=== PATIENT | female | born 1965 | race Caucasian/White ===

== ENCOUNTER 2018-01-17 13:26 | Outpatient (CLI) | payer OTHER | END 2018-01-17 13:27 | disposition home or self-care (01) | LOC: DTY/OP 13:26 | PROVIDERS: ATTEND Surgery | DX: E66.01 Morbid (severe) obesity due to excess calories (principal); E78.5 Hyperlipidemia, unspecified | CPT/HCPCS: 97802 ==

== ENCOUNTER 2018-02-13 09:12 | Outpatient (CLI) | payer OTHER | END 2018-02-13 09:13 | disposition home or self-care (01) | LOC: DTY/OP 09:12 | PROVIDERS: ATTEND Surgery | DX: E66.01 Morbid (severe) obesity due to excess calories (principal); E78.5 Hyperlipidemia, unspecified | CPT/HCPCS: 97802 ==

== ENCOUNTER 2018-06-27 04:38 | Outpatient (CLI) | payer OTHER ==
[2018-06-27 11:07] LABS: Mean Corpuscular HGB CONC 32.4 g/dL (32.0-36.0); Mean Corpuscular Volume 92.9 fL (78.0-98.0); Mean Platelet Volume 8.7 fL (7.4-10.4); Platelet Count 253 thou/uL (130-400); RBC Distribution Width 12.2 % (11.5-14.5); Red Blood Cell (RBC) Count 4.65 mill/uL (4.20-5.40); White Blood Cell (WBC) Count 7.4 thou/uL (4.8-10.8)
--- NOTE | 2018-06-27 11:19 | RAD ---
CHEST TWO VIEWS: History: Pre-operative exam. Comparison: None. FINDINGS: Normal cardiac silhouette. The pulmonary vessels and hilum are normal. Costophrenic angles are clear. No mass. No consolidation. No pneumothorax or osseous abnormalities. IMPRESSION: No acute cardiopulmonary process. POS: [facility]
[2018-06-27 11:28] LABS: ALT (SGPT) 15 U/L (8-55); AST (SGOT) 19 U/L (5-34); Albumin 4.2 g/dL (3.5-5.0); Alkaline Phosphatase 74 U/L (40-150); Anion Gap 13 mmol/L (10-20); BUN (Urea Nitrogen) 20 mg/dL (9.8-20.1); Bilirubin, Direct 0.2 mg/dL (0.1-0.3); Bilirubin, Total 0.4 mg/dL (0.2-1.2); Calc. Creatinine Clearance 0 mL/min (70-130); Calcium 9.4 mg/dL (7.8-10.44); Carbon Dioxide 22 mmol/L (22-29); Chloride 105 mmol/L (98-107); Estimated GFR-MDRD 86; Globulin 3.1 g/dL (2.4-3.5); Glucose 91 mg/dL (70-105); Potassium 3.9 mmol/L (3.5-5.1); Protein, Total 7.3 g/dL (6.0-8.3); Sodium 136 mmol/L (136-145)
[2018-06-27 11:38] LABS: Hemoglobin A1c 5.3 % (4.0-6.0)
--- NOTE | 2018-06-28 09:01 | EKG ---
Test Reason : Blood Pressure : / mmHG Vent. Rate : 065 BPM Atrial Rate : 065 BPM P-R Int : 126 ms QRS Dur : 080 ms QT Int : 420 ms P-R-T Axes : 039 042 035 degrees QTc Int : 436 ms Normal sinus rhythm Low voltage QRS Borderline ECG No previous ECGs available Confirmed by DR. Cuong PEREZ ([id number]) on 06/28/2018 9:01:36 AM Referred By: RIK Confirmed By:DR. Cuong PEREZ
== END 2018-06-27 04:39 | disposition home or self-care (01) ==
LOC: LABBT 04:38
PROVIDERS: ATTEND Surgery
DX: Z01.818 Encounter for other preprocedural examination (principal); E66.01 Morbid (severe) obesity due to excess calories
CPT/HCPCS: 71046; 80053; 80076; 83036; 85027; 93005; 93010

== ENCOUNTER 2018-06-27 10:00 | Inpatient (IN) | payer OTHER ==
[2018-06-27 10:19] VITALS: BMI 39.5
[2018-07-10] MEDS ORDERED: Fentanyl 100 MCG/2 ML VIAL ONE ×4 (06:25→09:35)
[2018-07-10] MEDS ORDERED: Heparin 5,000 UNITS/ML VIAL ONE (06:36)
[2018-07-10] MEDS ORDERED: Bupivacaine HCl 0.5%/Epinephrine 1:200,000/PF 30 ml Vial ONE (06:48)
[2018-07-10] MEDS ORDERED: hydrALAZINE 20 MG/ML VIAL SLOW IVP PRN (08:52)
[2018-07-10] MEDS ORDERED: Promethazine HCl 25 MG/ML VIAL IM PRN ×3 (08:52→09:14)
[2018-07-10] MEDS ORDERED: Dextrose 5% in Water 1,000 ML IV PRN (08:52)
[2018-07-10] MEDS ORDERED: Hydrocodone-Acetamin 15 ML UDCUP PO PRN (08:52)
[2018-07-10] MEDS ORDERED: diphenhydrAMINE 50 MG/ML VIAL IVP PRN ×2 (08:52→09:14)
[2018-07-10] MEDS ORDERED: Dextrose 50% Abboject 50 ML SYRINGE SLOW IVP PRN (08:52)
[2018-07-10] MEDS ORDERED: Ondansetron PF 4 MG/2 ML Vial IVP PRN ×2 (08:52→09:14)
[2018-07-10] MEDS ORDERED: Enoxaparin Sodium 40 MG/0.4 ML SYRINGE SC SCH (09:00)
[2018-07-10] MEDS ORDERED: CEFAZOLIN/Water 2 GM/20 ML SYRINGE SLOW IVP SCH (09:00)
[2018-07-10] MEDS ORDERED: Pantoprazole 40 MG VIAL IVP SCH (09:00)
[2018-07-10] MEDS ORDERED: Naloxone HCl 0.4 mg/ml Vial IV PRN (09:14)
[2018-07-10] MEDS ORDERED: fentaNYL Citrate/PF 2,000 MCG in Sodium Chloride 0.9% 60 ML IV PRN (09:14)
[2018-07-10] MEDS ORDERED: Promethazine HCl 25 MG/ML VIAL SLOW IVP PRN (09:14)
[2018-07-10] MEDS ORDERED: diphenhydrAMINE 25 MG CAP PO PRN (09:14)
[2018-07-10] MEDS ORDERED: Ketorolac Tromethamine 30 MG/ML VIAL IVP PRN (09:14)
[2018-07-10] MEDS ORDERED: Ondansetron HCl/PF 4 MG/2 ML Vial IVP PRN (09:14)
[2018-07-10] MEDS ORDERED: Zolpidem Tartrate 5 MG TAB PO PRN (09:14)
[2018-07-10] MEDS ORDERED: diphenhydrAMINE 50 MG/ML VIAL IM PRN (09:14)
[2018-07-10] MEDS ORDERED: Communication Order-Pharmacy FS SCH (09:15)
[2018-07-10] MEDS ORDERED: Sodium Chloride 0.9% (PF) 10 ML VIAL FS PRN (09:31)
[2018-07-10] MEDS ORDERED: D5 1/2 NS w/20 mEq KCL 1,000 ML ONE (09:42)
--- NOTE | 2018-07-10 09:53 | OP ---
DATE OF PROCEDURE: 07/10/2018 PREOPERATIVE DIAGNOSIS: Morbid obesity. PROCEDURES PERFORMED: Laparoscopic sleeve gastrectomy with esophagogastroscopy. INDICATIONS: A 52-year-old female, morbidly obese, who has attempted multiple weight loss programs without success. FINDINGS: A 38-Indian bougie used. DESCRIPTION OF PROCEDURE: After informed consent was obtained, the patient was taken to the operating room and given general endotracheal anesthesia. She was placed in supine position. Her abdomen was prepped and draped in usual fashion. Local anesthesia was infiltrated subcutaneously and deep. A 12 mm incision was performed approximately 8 inches above the xiphoid slightly to the left. Veress needle inserted. Drop test performed. Pneumoperitoneum was created to a volume of 2 L of carbon dioxide. Utilizing a bladeless 12 mm trocar and 0-degree laparoscope, direct visual entry into the abdominal cavity was performed. Pneumoperitoneum was created to a pressure of 15 mmHg. The patient was placed in steep reverse Trendelenburg position and a Peng liver retractor was inserted. Left lobe of liver retracted superiorly. The pylorus was identified. A 12 mm port placed on the right beneath it and two 12s placed left subcostal. The omentum was taken off the greater curvature 5 cm from the pylorus utilizing the LigaSure. Short gastrics divided with LigaSure and left crura defined with LigaSure. A 38-Indian bougie inserted directed into the antrum. The linear 60 mm green load stapler used to divide the antrum to the bougie, gold load along the bougie, and a series of blues through the angle of His. Intraoperative endoscopy was performed. The video endoscope was inserted under direct vision and advanced into the sleeve. The staple line was inspected. There was no bleeding. Staple line then tested by inflating the new stomach with pressurized air and water. There was no air leak. Stomach decompressed. Scope removed. The remnants of the stomach removed from the abdomen through the left lateral port site. The fascia was closed with 0 Vicryl suture and the GraNee needle. Trocars and retractors removed. Hemostasis assured. Skin closed with interrupted 4-0 Rapide. Dermabond applied. The patient tolerated the procedure well, transferred to Recovery in good condition. Sponge and needle count verified correct x2. Job ID: [id number]
[2018-07-10] MEDS ORDERED: Ketorolac Tromethamine 30 MG/ML VIAL IVP SCH (12:00)
[2018-07-10] MEDS: CEFAZOLIN 2 GM in Premix Bag 1 BAG IVPB SCH (15:42)
[2018-07-10] MEDS ORDERED: PROPOFOL 200 MG/20 ML VIAL ONE (15:54)
[2018-07-10] MEDS ORDERED: Rocuronium Bromide 10 MG/ML (10ML VIAL) ONE (15:54)
[2018-07-10] MEDS ORDERED: Ondansetron PF 4 MG/2 ML Vial ONE (15:54)
[2018-07-10] MEDS ORDERED: Dexamethasone 20 MG/5 ML VIAL ONE (15:54)
[2018-07-10] MEDS ORDERED: Lidocaine 1% PF 5 ML VIAL ONE (15:54)
[2018-07-10] MEDS ORDERED: Glycopyrrolate 0.2 MG/ML 5 ML SYRINGE ONE (15:54)
[2018-07-10] MEDS ORDERED: ePHEDrine 50 MG/ML VIAL ONE (15:54)
[2018-07-10] MEDS: D5 1/2 NS w/20 mEq KCL 1,000 ML IV SCH ×2 (16:24→17:33)
[2018-07-11] MEDS: CEFAZOLIN 2 GM in Premix Bag 1 BAG IVPB SCH (00:25)
[2018-07-11] MEDS: D5 1/2 NS w/20 mEq KCL 1,000 ML IV SCH ×2 (00:25→09:23)
[2018-07-11 05:59] LABS: #Monocytes 0.6 thou/uL (0.11-0.59); #Neutrophils 8.8 thou/uL (1.40-6.50); %Eosinophils 0.2 % (0.0-10.0); %Lymphocytes 9.1 % (21.0-51.0); %Monocytes 6.1 % (0.0-10.0); %Neutrophils 84.6 % (42.0-75.0); Hemoglobin 13.2 g/dL (12.0-16.0); Mean Corpuscular HGB CONC 31.9 g/dL (32.0-36.0); Mean Corpuscular Hemoglobin 30.3 pg (27.0-31.0); Mean Platelet Volume 9.4 fL (7.4-10.4); Platelet Count 215 thou/uL (130-400); RBC Distribution Width 12.2 % (11.5-14.5); Red Blood Cell (RBC) Count 4.36 mill/uL (4.20-5.40); White Blood Cell (WBC) Count 10.4 thou/uL (4.8-10.8)
[2018-07-11 06:32] LABS: Anion Gap 12 mmol/L (10-20); BUN (Urea Nitrogen) 7 mg/dL (9.8-20.1); Calc. Creatinine Clearance 170 mL/min (70-130); Calcium 8.9 mg/dL (7.8-10.44); Carbon Dioxide 25 mmol/L (22-29); Chloride 104 mmol/L (98-107); Estimated GFR-MDRD Greater than 90; Glucose 153 mg/dL (70-105); Potassium 4.6 mmol/L (3.5-5.1); Sodium 136 mmol/L (136-145)
--- NOTE | 2018-07-11 08:40 | RAD ---
15 ML SINGLE CONTRAST UPPER GI: Date: 07/11/18 HISTORY: Postoperative day 1 gastric sleeve. EXPOSURE: 0.6 minutes. 4.4 mGy*cm^2. FINDINGS: Patient administered 15 mL of Gastrografin, which passes without difficulty from the esophagus into t he residual stomach. No leak or extravasation. IMPRESSION: No leak or extravasation. POS: [facility]
[2018-07-11] MEDS ORDERED: Enoxaparin Sodium 40 MG/0.4 ML SYRINGE SC SCH (09:00)
[2018-07-11] MEDS ORDERED: Pantoprazole 40 MG VIAL IVP SCH (09:00)
--- NOTE | 2018-07-11 10:44 | DIS ---
DATE OF ADMISSION: 07/10/2018 DATE OF DISCHARGE: 07/11/2018 DISCHARGE DIAGNOSIS: Morbid obesity. PROCEDURES DURING ADMISSION: Laparoscopic sleeve gastrectomy, intraoperative esophagogastroscopy, postoperative Gastrografin swallow. HOSPITAL COURSE: The patient was admitted, taken to the operating room, where she underwent a sleeve gastrectomy. Postoperatively, she has done well. X-ray is fine. She is tolerating liquids. Pain is controlled on p.o. medications. Discharged home in good condition on hydrocodone and Zofran. She will follow up with me in 2 weeks. Job ID: [id number]
[2018-07-11 11:26] VITALS: BP 149/75; TEMP 98.2
[2018-07-11] MEDS ORDERED: Hydrocodone-Acetamin 15 ML UDCUP PO SCH (11:30)
[2018-07-11] MEDS ORDERED: Ondansetron ODT 4 MG TAB PO SCH (11:45)
[2018-07-11] MEDS ORDERED: Hydrocodone-Acetamin 15 ML UDCUP PO PRN (15:00)
== END 2018-07-11 11:53 | disposition home or self-care (01) | DRG 621 ==
LOC: SURG A 07-10 05:44
PROVIDERS: ADMIT Surgery; ATTEND Surgery
PROC: 0DB64Z3 Excision of Stomach, Percutaneous Endoscopic Approach, Vertical (ICD-10-PCS; principal; 2018-07-10)
PROC: 0DJ68ZZ Inspection of Stomach, Via Natural or Artificial Opening Endoscopic (ICD-10-PCS; 2018-07-10)
DX: E66.01 Morbid (severe) obesity due to excess calories (principal); Z68.39 Body mass index [BMI] 39.0-39.9, adult; J45.909 Unspecified asthma, uncomplicated; E07.9 Disorder of thyroid, unspecified; R12 Heartburn; Z79.899 Other long term (current) drug therapy
CPT/HCPCS: 36415; 74241; 80048; 85025; 88307; 88312; C9113; J0131; J0670; J1100; J1644; J1650; J1885; J2001; J2405; J2704; J3010; J3490; J7050; Q0162